=== PATIENT | male | born 1955 | race Caucasian/White ===

== ENCOUNTER → 2020-03-03 09:14 | Outpatient (BNVA) | payer SELFPAY | PROVIDERS: Visit Provider Nurse Practitioner Family | DX: M25.512 Pain in left shoulder (principal) | CPT/HCPCS: 73030 ==

== ENCOUNTER 2020-05-10 13:08 | Outpatient (CLI) | payer MEDICARE, OTHER, SELFPAY ==
--- NOTE | 2020-05-10 13:17 | MR_ITS ---
WS: [id number] MRI LEFT SHOULDER HISTORY: ROTATOR CUFF tear, weakness LEFT ARM, LEFT SHOULDER PAIN COMPARISON: Shoulder radiograph 03/03/2020. TECHNIQUE: Multiplanar sequences of the shoulder joint are submitted. Mild AC joint hypertrophy. Small amount of fluid in the subacromial and subdeltoid bursa. No os acrom ion. Dislocated biceps tendon. In the bicipital groove there is no biceps tendon identified. Biceps t endon is identified extra capsular and thickened. Full-thickness tear involving the distal supraspina tus tendon. Mild retraction of the tendon to the superior humeral head. Significant tendinopathy invo lving the supraspinatus tendon and the humeral head is high riding. Mild atrophy of the supraspinatus muscle. Subscapularis tendon probably is also torn and retracted and the biceps tendon is dislocated lateral to the subscapularis tendon. Fluid in the subscapular recess. No definite labral tears are i dentified. MR/MR shoulder LT wo con* [id number] IMPRESSION: 1. Dislocated biceps tendon. 2. Suspect torn retracted subscapularis tendon 3. Full thickness tear distal subscapularis tendon.
== END 2020-05-10 13:09 | disposition home or self-care (01) ==
PROVIDERS: PCP Nurse Practitioner Family; Visit Provider Nurse Practitioner Family
DX: M25.512 Pain in left shoulder (principal); R53.1 Weakness; M75.102 Unspecified rotator cuff tear or rupture of left shoulder, not specified as traumatic
CPT/HCPCS: 73221